=== PATIENT | male | born 1965 | race Caucasian/White ===

== ENCOUNTER → 2021-12-08 | Outpatient (CLI) | payer BC ==
--- NOTE | 2021-12-08 16:28 | Diagnostic Imaging Report ---
EXAM: Forearm, left, 2 views INDICATION: Left forearm pain. Trauma. COMPARISON: None. FINDINGS/ IMPRESSION: 1. Impacted comminuted intra-articular fracture of the distal left radial metaphysis. 2. No other fracture is identified. Dictated by: Dictated on workstation # [id number]
== END ==
LOC: RAD 15:56
PROVIDERS: ATTEND Nurse Practitioner Family
DX: S52.502A Unspecified fracture of the lower end of left radius, initial encounter for closed fracture (principal); X58.XXXA Exposure to other specified factors, initial encounter
CPT/HCPCS: 73090